=== PATIENT | female | born 1945 | race Caucasian/White ===

== ENCOUNTER 2019-02-25 21:00 | Inpatient (IN) | payer MEDICARE, BC ==
[~2019-02-25] VITALS: Ht 165.1 cm; Wt 101.8 kg
[2019-02-25] MEDS ORDERED: heparin 10,000 units/1 ML INJ IV ONE (21:05)
[2019-02-25] MEDS ORDERED: heparin 10,000 units/1 ML INJ IV PRN (21:05)
[2019-02-25] MEDS: heparin 25,000 UNIT/250ml bag 250 ML IV SCH (21:39)
[2019-02-25] MEDS ORDERED: METO100T7 PO (21:50)
[2019-02-25] MEDS ORDERED: TRIA1CAP6 PO (21:50)
[2019-02-25] MEDS ORDERED: WARF6TAB49 PO (21:50)
[2019-02-25] MEDS ORDERED: METF500T PO (21:50)
[2019-02-25] MEDS ORDERED: VALS160T2 PO (21:50)
[2019-02-25] MEDS ORDERED: COU4T PO (21:50)
[2019-02-25] MEDS ORDERED: METO50TA7 PO (21:50)
--- NOTE | 2019-02-25 22:44 | NUR ---
LAB CALLED TO NOTIFY THEY WEREN'T ABLE TO RESULT PTT, HEPARIN DRIP PAUSED, PHLEBOTIMST WILL JUDI ANOTHER PTT IN 15 MINUTES.
--- NOTE | 2019-02-25 23:40 | NUR ---
PTT IS STILL TO HIGH FOR LAB TO RESULT. HEPRIN IS PAUSED, PTT IS ORDERED TO BE REDRAWN IN TWO HOURS. DR COHEN IS AT BEDSIDE AND AWARE. DR COHEN WANTS THE HEPRIN TO BE STARTED AT 800u/hr WHEN HEPARIN IS RESTARTED. PT IS ALSO HYPERTENSIVE 200/89, PER DR COHEN PT SELF ADMINISTERED HOME MEDICATION 50MG OF METOPROLOL.
[2019-02-26] MEDS ORDERED: normal saline 1000ml 1,000 ML IV SCH (00:06)
[2019-02-26] MEDS ORDERED: ondansetron/PF 4mg/2ml inj IV PRN (00:10)
[2019-02-26] MEDS ORDERED: acetaminophen 325mg tablet PO PRN (00:10)
[2019-02-26] MEDS ORDERED: mag hydrox/Alum hydrox/simeth 30ml oral suspension PO PRN (00:10)
[2019-02-26] MEDS ORDERED: magnesium hydroxide 30ml (MOM) UD suspension PO PRN (00:10)
[2019-02-26] MEDS ORDERED: niCARDipine-NS 40mg/200ml IVPB 200 ML IV PRN (00:38)
[2019-02-26] MEDS: niCARDipine-NS 40mg/200ml IVPB 200 ML IV PRN ×2 (01:01→08:09)
--- NOTE | 2019-02-26 01:15 | NUR ---
Patient is lying quietly and undisturbed. Waiting for a bed to be resulted in the floor.
--- NOTE | 2019-02-26 02:23 | NUR ---
PTT lab results came back within therapeutic range. The heparin infusion was started per Dr. Oshea's order at 800 units/h.
--- NOTE | 2019-02-26 03:13 | NUR ---
Attempted to call report was told by the tech that the nurse will call back in 10 minutes when she is not so busy.
--- NOTE | 2019-02-26 03:27 | NUR ---
Patient in room ED 4. I have received report from Alvin RAYMOND and had the opportunity to ask questions and awaiting arrival from ER to the PCU.
--- NOTE | 2019-02-26 03:30 | NUR ---
Patient arrived to the PCU unit at this time. She is accompanied by family. She is able to make her needs known. She was able to walk from the gurney to the bed, a few feet. She is on room air. Vitals stable at this time. Safety precautions in place. Will continue to monitor.
[2019-02-26 03:45] VITALS: BP 132/59
[2019-02-26] MEDS: acetaminophen 325mg tablet PO PRN ×2 (04:30→17:09)
--- NOTE | 2019-02-26 06:13 | NUR ---
Patient in room PCU 3011. I have received report from wilfredo Escamilla and had the opportunity to ask questions and assume patient care.
--- NOTE | 2019-02-26 06:34 | NUR ---
Problems reprioritized. Patient report given, questions answered & plan of care reviewed with Magdalene RAYMOND and Alpa RAYMOND.
--- NOTE | 2019-02-26 06:36 | NUR ---
Patient in room [facility] 3011. I have received report from Kimberly RAYMOND and had the opportunity to ask questions and assume patient care. Patient asleep in bed and resting comfortably. Addendum: 02/26/19 at 0649 by Magdalene Forbes RN Report received from MANDI Escamilla.
[2019-02-26 07:00] VITALS: BP 123/55
[2019-02-26 07:41] LABS: BASOPHILS # (AUTO) 0.1 X10'3 (0-0.2); BASOPHILS % (AUTO) 1.2 % (0-1); EOSINOPHILS # (AUTO) 0.1 X10'3 (0-0.9); EOSINOPHILS % (AUTO) 1.6 % (0-6); HEMATOCRIT 36.9 % (35.0-45.0); HEMOGLOBIN 12.5 g/dl (12.0-16.0); LYMPHOCYTES # (AUTO) 2.4 X10'3 (1.1-4.8); LYMPHOCYTES % (AUTO) 30.1 % (21-51); MEAN CORPUSCULAR HEMOGLOBIN 29.3 PG (27.0-31.0); MEAN CORPUSCULAR HGB CONC 33.9 g/dL (33.0-36.5); MEAN CORPUSCULAR VOLUME 86.3 FL (78-98); MEAN PLATELET VOLUME 10.5 FL (7.4-10.4); MONOCYTES # (AUTO) 0.6 X10'3 (0-0.9); MONOCYTES % (AUTO) 7.5 % (2-12); NEUTROPHILS # (AUTO) 4.8 X10'3 (1.8-7.7); NEUTROPHILS % (AUTO) 59.6 % (42-75); PLATELET COUNT 177 X10'3 (140-440); RED BLOOD COUNT 4.27 X10'6 (4.20-5.60); RED CELL DISTRIBUTION WIDTH 15.8 % (11.5-14.5); WHITE BLOOD COUNT 8.1 X10'3 (4.5-11.0)
[2019-02-26 07:54] LABS: ALBUMIN 3.3 G/DL (3.4-5.0); ANION GAP 6 (8-16); ASPARTATE AMINO TRANSFERASE 20 U/L (10-37); BILIRUBIN,TOTAL 0.4 MG/DL (0.1-1.0); BLOOD UREA NITROGEN 22 MG/DL (7-18); BUN/CREATININE RATIO 15.9 (6.6-38.0); CALCIUM 8.9 MG/DL (8.5-10.1); CHLORIDE 106 MMOL/L (99-107); CREATININE 1.38 MG/DL (0.40-0.90); GLUCOSE 128 MG/DL (70-104); POTASSIUM 3.4 MMOL/L (3.5-5.1); SODIUM 140 MMOL/L (135-145); TOTAL CARBON DIOXIDE 28.4 MMOL/L (24-32); TOTAL PROTEIN 6.7 G/DL (6.4-8.2); eGFR 37 ML/MIN
[2019-02-26 07:55] LABS: ALANINE AMINOTRANSFERASE 37 U/L (12-78); ALKALINE PHOSPHATASE 62 IU/L (46-116)
[2019-02-26] MEDS ORDERED: METOPROLOL SUCCINATE PO SCH (08:00)
--- NOTE | 2019-02-26 10:08 | NUR ---
Nettad Jose PAGER ID: [phone] MESSAGE: [id number] - Ruby Aceves: Pt is on Cardine gtt @ 5mg/hr. SBP trending in the 120-130 for the last 8hrs. Do you want to continue gtt? Pt also has home BP meds ordered. Please advise -magan [phone]
[2019-02-26] MEDS ORDERED: dextrose 50%-water 50ml dispensing syringe IV PRN ×2 (10:15)
[2019-02-26] MEDS ORDERED: MESSAGE TO PHARMACY PO ONE (10:15)
[2019-02-26] MEDS ORDERED: potassium CL 10mEq/100ml bag 100 ML IV PRN (10:15)
[2019-02-26] MEDS ORDERED: glucagon, human recombinant 1mg kit SUBCUT PRN (10:15)
[2019-02-26] MEDS: K and/or MAG REPLACEMENT MC SCH ×2 (10:15→20:00)
[2019-02-26] MEDS ORDERED: dextrose ORAL solution 15 GM/59 ML bottle PO PRN ×2 (10:15)
[2019-02-26] MEDS ORDERED: insulin Lispro (HumaLOG) vial - multi-dose SQ SCH (10:15)
[2019-02-26] MEDS ORDERED: potassium Cl 20 mEq SR tablet PO PRN (10:15)
--- NOTE | 2019-02-26 10:19 | NUR ---
New orders from Dr. Garcia to discontinue cardene drip, potassium replacement protocol, hyper/hypoglycemia protocol, and bilateral venous ultrasound.
[2019-02-26 10:42] LABS: LARGE PLATELETS FEW; PLATELET ESTIMATE NORMAL
[2019-02-26 11:00] VITALS: BP 115/50
[2019-02-26 11:46] LABS: HEMOGLOBIN A1C 6.5 % (4.5-6.2)
[2019-02-26] MEDS: TOPROL 50 MG PO SCH ×2 (12:09→20:03)
[2019-02-26] MEDS: [UNRECOGNIZED DRUG - OTHER] PO SCH ×2 (12:09→20:03)
--- NOTE | 2019-02-26 12:24 | NUR ---
New order per Jose, give 150mg Diovan if SBP >130 for today only
--- NOTE | 2019-02-26 13:51 | NUR ---
Brady Garcia PAGER ID: [phone] MESSAGE: [id number]: Ruby Aceves: Pts venous ultrasound results came back and are in pts chart -magan [phone]
[2019-02-26] MEDS: potassium Cl 20 mEq SR tablet PO PRN ×2 (14:08→22:29)
--- NOTE | 2019-02-26 14:08 | NUR ---
Administered PRN dose of KDur20 per MD order for serum K of 3.4.
[2019-02-26 15:00] VITALS: BP 131/61
[2019-02-26] MEDS: heparin 25,000 UNIT/250ml bag 250 ML IV SCH (17:00)
[2019-02-26 18:00] VITALS: BP 130/60
--- NOTE | 2019-02-26 18:07 | NUR ---
Orientee documentation: I have reviewed and agree with all interventions, assessments performed and documented by MANDI Yuen. Student Medication Administration: For this medication-pass time frame, all medication were reviewed, dispensed, administered and documented per hospital policy by Alpa RAYMOND.
--- NOTE | 2019-02-26 18:41 | NUR ---
Problems reprioritized. Patient report given, questions answered & plan of care reviewed with MANDI Aoyub. Patient stable at transfer of care.
--- NOTE | 2019-02-26 19:11 | NUR ---
Patient in room PCU 3011. I have received report from Magdalene RAYMOND and had the opportunity to ask questions and assume patient care.
[2019-02-26] MEDS ORDERED: warfarin 5mg tablet PO ONE (21:00)
[2019-02-26] MEDS ORDERED: insulin glargine (Lantus) pen - multi-dose SQ SCH (21:00)
[2019-02-26 22:00] VITALS: BP 127/61
[2019-02-27 02:00] VITALS: BP 132/62
[2019-02-27 05:48] LABS: BASOPHILS # (AUTO) 0.1 X10'3 (0-0.2); BASOPHILS % (AUTO) 0.7 % (0-1); EOSINOPHILS # (AUTO) 0.3 X10'3 (0-0.9); EOSINOPHILS % (AUTO) 4.5 % (0-6); HEMATOCRIT 34.8 % (35.0-45.0); HEMOGLOBIN 11.7 g/dl (12.0-16.0); LYMPHOCYTES # (AUTO) 2.6 X10'3 (1.1-4.8); MEAN CORPUSCULAR HEMOGLOBIN 29.5 PG (27.0-31.0); MEAN CORPUSCULAR HGB CONC 33.5 g/dL (33.0-36.5); MEAN PLATELET VOLUME 10.5 FL (7.4-10.4); MONOCYTES # (AUTO) 0.6 X10'3 (0-0.9); MONOCYTES % (AUTO) 8.4 % (2-12); NEUTROPHILS # (AUTO) 3.8 X10'3 (1.8-7.7); NEUTROPHILS % (AUTO) 51.4 % (42-75); PLATELET COUNT 182 X10'3 (140-440); RED BLOOD COUNT 3.96 X10'6 (4.20-5.60); RED CELL DISTRIBUTION WIDTH 16.2 % (11.5-14.5); WHITE BLOOD COUNT 7.5 X10'3 (4.5-11.0)
[2019-02-27 05:52] LABS: ALANINE AMINOTRANSFERASE 31 U/L (12-78); ALBUMIN 2.8 G/DL (3.4-5.0); ALBUMIN/GLOBULIN RATIO 0.8 (1.1-1.5); ALKALINE PHOSPHATASE 55 IU/L (46-116); ANION GAP 9 (8-16); ASPARTATE AMINO TRANSFERASE 21 U/L (10-37); BILIRUBIN,TOTAL 0.3 MG/DL (0.1-1.0); BLOOD UREA NITROGEN 24 MG/DL (7-18); BUN/CREATININE RATIO 16.8 (6.6-38.0); CALCIUM 8.4 MG/DL (8.5-10.1); CHLORIDE 108 MMOL/L (99-107); CREATININE 1.43 MG/DL (0.40-0.90); GLUCOSE 120 MG/DL (70-104); POTASSIUM 3.9 MMOL/L (3.5-5.1); SODIUM 142 MMOL/L (135-145); TOTAL CARBON DIOXIDE 25.5 MMOL/L (24-32); TOTAL PROTEIN 6.2 G/DL (6.4-8.2); eGFR 36 ML/MIN
[2019-02-27 06:00] VITALS: BP 144/75
--- NOTE | 2019-02-27 06:18 | NUR ---
Problems reprioritized. Patient report given, questions answered & plan of care reviewed with Chante RAYMOND.
--- NOTE | 2019-02-27 06:19 | NUR ---
Patient in room PCU 3011. I have received report from Anitra RAYMOND and had the opportunity to ask questions and assume patient care.
[2019-02-27] MEDS: K and/or MAG REPLACEMENT MC SCH (08:53)
[2019-02-27] MEDS: TOPROL 50 MG PO SCH (09:04)
[2019-02-27] MEDS: [UNRECOGNIZED DRUG - OTHER] PO SCH (09:04)
[2019-02-27] MEDS ORDERED: METF500T PO (10:05)
[2019-02-27] MEDS ORDERED: ENOX100D2 SUBCUT (10:05)
--- NOTE | 2019-02-27 12:30 | NUR ---
Discharge home with and children: All discharge instructions for follow up are reviewed with spouse and Pt. Lovenox teaching and written materials are provided. Pt. has additional help with medications and a family member who can offer assistance with the Lovenox injections. Home in private vehicle with many family members present. Belonging are packed and taken home with the Pt. All discharge medications are reviewed with additional review of next medication dose confirmed with the spouse.
--- NOTE | 2019-02-27 12:37 | NUR ---
prescription is called to [facility] on [address]
== END 2019-02-27 11:10 | disposition home or self-care (01) | DRG 300 ==
LOC: ER 21:00 → ED HOLD 02-26 00:19 → EDBEDREQ 02-26 02:50 → PCU 3S 02-26 03:30
PROVIDERS: ADMIT Internal Medicine; ATTEND Internal Medicine
DX: I82.451 Acute embolism and thrombosis of right peroneal vein (principal); I24.9 Acute ischemic heart disease, unspecified; I48.20 Chronic atrial fibrillation, unspecified; E11.22 Type 2 diabetes mellitus with diabetic chronic kidney disease; N18.3 Chronic kidney disease, stage 3 (moderate); I12.9 Hypertensive chronic kidney disease with stage 1 through stage 4 chronic kidney disease, or unspecified chronic kidney disease; M71.21 Synovial cyst of popliteal space [Baker], right knee; R79.1 Abnormal coagulation profile; Z79.01 Long term (current) use of anticoagulants; Z86.11 Personal history of tuberculosis; Z86.718 Personal history of other venous thrombosis and embolism; Z90.5 Acquired absence of kidney; Z88.8 Allergy status to other drugs, medicaments and biological substances
CPT/HCPCS: 36415; 80053; 82948; 83036; 84484; 85025; 85610; 85730; 87081; 93005; 93970; 99291; G0378; J1644; J1815; J7030

== ENCOUNTER 2019-03-19 08:07 | Outpatient (CLI) | payer MEDICARE, BC ==
[~2019-03-19 08:07] MED LIST: ENOX100D2 SUBCUT; METF500T PO; METO100T7 PO; VALS160T2 PO; WARF6TAB49 PO
== END 2019-03-19 23:59 | disposition home or self-care (01) ==
LOC: VAS 08:07
PROVIDERS: ATTEND Family Medicine
DX: I82.403 Acute embolism and thrombosis of unspecified deep veins of lower extremity, bilateral (principal); M71.21 Synovial cyst of popliteal space [Baker], right knee
CPT/HCPCS: 93970

== ENCOUNTER 2019-07-25 09:33 | Outpatient (CLI) | payer MEDICARE, BC | END 2019-07-25 23:59 | disposition home or self-care (01) | LOC: RAD 09:33 | PROVIDERS: ATTEND Family Medicine | DX: E21.2 Other hyperparathyroidism (principal); I82.451 Acute embolism and thrombosis of right peroneal vein | CPT/HCPCS: 78071; 93970; A9500 ==

== ENCOUNTER → 2019-10-18 | Outpatient (CLI) | payer MEDICARE, BC | END | disposition home or self-care (01) | LOC: RAD 09:40 | PROVIDERS: ATTEND Family Medicine | DX: I26.99 Other pulmonary embolism without acute cor pulmonale (principal) | CPT/HCPCS: 71046; 78582; A9539; A9540 ==

== ENCOUNTER 2020-01-01 13:20 | Outpatient (CLI) | payer MEDICARE, BC | END 2020-01-01 23:59 | disposition home or self-care (01) | LOC: VAS 13:20 | PROVIDERS: ATTEND Family Medicine | DX: I82.532 Chronic embolism and thrombosis of left popliteal vein (principal) | CPT/HCPCS: 93970 ==

== ENCOUNTER 2020-08-07 09:50 | Outpatient (CLI) | payer MEDICARE, BC | END 2020-08-07 23:59 | disposition home or self-care (01) | LOC: VAS 09:50 | PROVIDERS: ATTEND Family Medicine | DX: I82.532 Chronic embolism and thrombosis of left popliteal vein (principal); I82.512 Chronic embolism and thrombosis of left femoral vein | CPT/HCPCS: 93971 ==

== ENCOUNTER 2022-02-16 08:19 | Outpatient (CLI) | payer MEDICARE, BC | END 2022-02-16 23:59 | disposition home or self-care (01) | LOC: VAS 08:19 | PROVIDERS: ATTEND Internal Medicine | DX: I82.402 Acute embolism and thrombosis of unspecified deep veins of left lower extremity (principal) | CPT/HCPCS: 93971 ==

== ENCOUNTER 2022-03-15 09:33 | Outpatient (CLI) | payer MEDICARE, BC | END 2022-03-15 23:59 | disposition home or self-care (01) | LOC: RAD 09:33 | PROVIDERS: ATTEND Internal Medicine | DX: E04.2 Nontoxic multinodular goiter (principal) | CPT/HCPCS: 76536 ==